=== PATIENT | male | born 1965 | race American Indian/Alaskan Native ===

== ENCOUNTER 2020-08-22 16:20 | Emergency (ER) | payer MEDICAID, OTHER ==
[2020-08-22] MEDS ORDERED: SODIUM CHLORIDE 0.9% 1000 ML 1,000 ML IV ONE (16:26)
[2020-08-22] MEDS ORDERED: HYDROmorphone 1 MG/1 ML INJ IV ONE ×2 (16:26→18:04)
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
[2020-08-22 18:21] VITALS: BP 119/73
== END 2020-08-22 19:22 | disposition home or self-care (01) ==
LOC: ED 16:20
DX: S82.831A Other fracture of upper and lower end of right fibula, initial encounter for closed fracture (principal); S82.201A Unspecified fracture of shaft of right tibia, initial encounter for closed fracture; I10 Essential (primary) hypertension; Z98.890 Other specified postprocedural states; Z79.899 Other long term (current) drug therapy; Z88.8 Allergy status to other drugs, medicaments and biological substances; V89.2XXA Person injured in unspecified motor-vehicle accident, traffic, initial encounter; Y93.89 Activity, other specified; Y92.410 Unspecified street and highway as the place of occurrence of the external cause; Y99.8 Other external cause status
CPT/HCPCS: 29515; 73590; 96361; 96374; 96376; 99284; J1170; J7030

== ENCOUNTER 2020-09-09 12:32 | Outpatient (CLI) | payer OTHER ==
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
== END 2020-09-09 12:33 | disposition home or self-care (01) ==
LOC: XRAY 12:32
PROVIDERS: ATTEND Internal Medicine
DX: M25.551 Pain in right hip (principal); M25.552 Pain in left hip; R10.2 Pelvic and perineal pain; I10 Essential (primary) hypertension; Z96.641 Presence of right artificial hip joint; Z96.642 Presence of left artificial hip joint; Z95.2 Presence of prosthetic heart valve
CPT/HCPCS: 71046; 73521